=== PATIENT | female | born 1985 | race Caucasian/White ===

== ENCOUNTER 2021-09-27 08:59 | Observation (INO) | payer OTHER ==
[~2021-09-27] VITALS: Ht 165.1 cm; Wt 64.9 kg
== END 2021-09-27 13:15 | disposition home or self-care (01) ==
LOC: SPU 08:59
PROVIDERS: ADMIT Specialist; ATTEND Specialist
DX: O47.1 False labor at or after 37 completed weeks of gestation (principal); Z3A.37 37 weeks gestation of pregnancy
CPT/HCPCS: 59025; 76819; 81002; G0378

== ENCOUNTER 2021-10-02 23:20 | Observation (INO) | payer OTHER | END 2021-10-03 00:45 | disposition home or self-care (01) | LOC: SPU 23:20 | PROVIDERS: ADMIT Specialist; ATTEND Specialist | DX: O62.9 Abnormality of forces of labor, unspecified (principal); Z3A.39 39 weeks gestation of pregnancy | CPT/HCPCS: 81002; G0378; G0379 ==

== ENCOUNTER 2021-10-04 09:57 | Inpatient (IN) | payer OTHER ==
[~2021-10-04] VITALS: Ht 165.1 cm; Wt 64.9 kg
[2021-10-04] MEDS ORDERED: TERBUTALINE SULFATE 1 MG/ML VIAL SUBCUT ONE (11:15)
[2021-10-04] MEDS ORDERED: LR 1,000 ML IV SCH (11:15)
[2021-10-04] MEDS ORDERED: NALBUPHINE HCL 10 MG/ML AMP IM PRN (11:15)
[2021-10-04] MEDS ORDERED: OXYTOCIN/0.9 % SODIUM CHLORIDE 1,000 ML IV SCH ×2 (11:15→16:45)
[2021-10-04 11:36] LABS: BASOPHILS # (AUTO) 0.2 K/uL (0.0-0.2); BASOPHILS % (AUTO) 2.3 % (0.0-2.0); EOSINOPHILS # (AUTO) 0.1 K/uL (0.0-0.4); EOSINOPHILS % (AUTO) 0.5 % (0.0-4.0); HEMATOCRIT 37.1 % (36-48); HEMOGLOBIN 12.7 g/dL (12.0-16.0); LYMPHOCYTES # (AUTO) 1.5 K/uL (1.0-5.5); LYMPHOCYTES % (AUTO) 14.4 % (20.5-51.5); MEAN CORPUSCULAR HEMOGLOBIN 30 pg (27-31); MEAN CORPUSCULAR HGB CONC 34 % (32-36); MEAN CORPUSCULAR VOLUME 88 fL (79.0-98.0); MONOCYTES # (AUTO) 0.5 K/uL (0.0-1.0); MONOCYTES % (AUTO) 4.4 % (1.7-9.3); NEUTROPHILS % (AUTO) 78.4 % (40.0-70.0); PLATELET COUNT (AUTO) 298 K/uL (130-430); RED CELL DISTRIBUTION WIDTH 12.6 % (9.0-15.0); WHITE BLOOD COUNT (AUTO) 10.3 K/uL (4.8-10.8)
[2021-10-04] MEDS ORDERED: ROPIVACAINE HCL/PF 0.2% 200 ML ONE (15:16)
[2021-10-04] MEDS ORDERED: fentaNYL CITRATE/PF 100 MCG/2 ML AMP ONE (15:16)
[2021-10-04] MEDS ORDERED: LIGHT MINERAL OIL 10 ML VIAL MC ONE (15:59)
[2021-10-04] MEDS ORDERED: LIDOCAINE PF 1% 30ML(POUR BTL) INJ ONE (15:59)
[2021-10-04] MEDS ORDERED: NALOXONE HCL 0.4 MG/ML AMP (NARCAN) ONE (15:59)
[2021-10-04] MEDS ORDERED: LANOLIN 7 GM OINT. TP PRN (16:45)
[2021-10-04] MEDS ORDERED: WITCH HAZEL LEAF 1 MED.PAD MED.PAD TP PRN (16:45)
[2021-10-04] MEDS ORDERED: OXYCODONE/ACETAMINOPHEN 5-325 TABLET PO PRN ×2 (16:45)
[2021-10-04] MEDS ORDERED: OXYTOCIN/0.9 % SODIUM CHLORIDE 1,000 ML IV ONE (16:45)
[2021-10-04] MEDS ORDERED: HYDROCORTISONE 0.5% CREAM 28.4 GM CREAM.GM. TP PRN (16:45)
[2021-10-04] MEDS ORDERED: MEASLES,MUMPS&RUBELLA VACC/PF 12500 UNIT/0.5 ML VIAL SUBQ PRN (16:45)
[2021-10-04] MEDS ORDERED: DIPH-TET-PERTUS Vaccine 0.5 ML VIAL (ADACEL) I.M. PRN (16:45)
[2021-10-04] MEDS ORDERED: METHYLERGONOVINE MALEATE 0.2 MG TABLET PO PRN (16:45)
[2021-10-04] MEDS ORDERED: RHO(D) IMMUNE GLOBULIN/MALTOSE 1500 UNITS/1.3 ML (WINHRO) IM PRN (16:45)
[2021-10-04] MEDS ORDERED: HYDROcodone/ACETAMIN 5-325 MG TAB (NORCO/ VICODIN) PO PRN (16:45)
[2021-10-04] MEDS ORDERED: DERMOPLAST SPRAY TP PRN (16:45)
[2021-10-04] MEDS ORDERED: ANUSOL 1 EA SUPP.RECT (PREPARATION H) RC PRN (16:45)
[2021-10-04] MEDS ORDERED: NALOXONE HCL 0.4 MG/ML AMP (NARCAN) IVP PRN (16:45)
[2021-10-04] MEDS ORDERED: FENT2mCg/mL-ROPIVA0.2%/NS EPID 200 ML EP SCH (17:00)
[2021-10-04] MEDS ORDERED: LR 500 ML IV ONE (17:00)
[2021-10-04] MEDS: IBUPROFEN 600 MG TABLET PO SCH (18:26)
[2021-10-04 19:47] VITALS: BP_SYST 140
[2021-10-04 20:00] VITALS: BP_SYST 133; BP_SYST 87
[2021-10-04] MEDS ORDERED: TEMAZEPAM 15 MG CAPSULE PO PRN (21:00)
[2021-10-04] MEDS ORDERED: SENNOSIDES/DOCUSATE SODIUM 1 TAB TABLET(SENOKOT-S) PO SCH (21:00)
--- NOTE | 2021-10-04 23:07 | NUR ---
1946 vital signs charted by mistake - wrong patient Addendum: 10/04/21 at 2312 by Mony Bajwa RN Amended: Links added.
[2021-10-05] MEDS: IBUPROFEN 600 MG TABLET PO SCH ×3 (00:12→11:34)
[2021-10-05 07:02] LABS: BASOPHILS % (AUTO) 0.3 % (0.0-2.0); EOSINOPHILS # (AUTO) 0.1 K/uL (0.0-0.4); EOSINOPHILS % (AUTO) 0.4 % (0.0-4.0); HEMATOCRIT 31.4 % (36-48); HEMOGLOBIN 10.9 g/dL (12.0-16.0); LYMPHOCYTES % (AUTO) 22.2 % (20.5-51.5); MEAN CORPUSCULAR HEMOGLOBIN 31 pg (27-31); MEAN CORPUSCULAR HGB CONC 35 % (32-36); MEAN CORPUSCULAR VOLUME 88 fL (79.0-98.0); MONOCYTES # (AUTO) 0.7 K/uL (0.0-1.0); MONOCYTES % (AUTO) 5.4 % (1.7-9.3); NEUTROPHILS # (AUTO) 9.7 K/uL (1.8-7.7); NEUTROPHILS % (AUTO) 71.7 % (40.0-70.0); PLATELET COUNT (AUTO) 252 K/uL (130-430); RED BLOOD CELL COUNT(AUTO) 3.55 MIL/uL (4.2-6.2); RED CELL DISTRIBUTION WIDTH 12.8 % (9.0-15.0); WHITE BLOOD COUNT (AUTO) 13.6 K/uL (4.8-10.8)
[2021-10-05] MEDS ORDERED: DOCUSATE SODIUM 100 MG CAPSULE PO SCH (09:00)
== END 2021-10-05 17:45 | disposition home or self-care (01) | DRG 807 ==
LOC: SPU 09:57
PROVIDERS: ADMIT Specialist; ATTEND Specialist
PROC: 10D07Z6 Extraction of Products of Conception, Vacuum, Via Natural or Artificial Opening (ICD-10-PCS; principal; 2021-10-04)
PROC: 3E0R3BZ Introduction of Anesthetic Agent into Spinal Canal, Percutaneous Approach (ICD-10-PCS; 2021-10-04)
PROC: 00HU33Z Insertion of Infusion Device into Spinal Canal, Percutaneous Approach (ICD-10-PCS; 2021-10-04)
DX: O69.81X0 Labor and delivery complicated by cord around neck, without compression, not applicable or unspecified (principal); Z37.0 Single live birth; Z20.822 Contact with and (suspected) exposure to COVID-19; Z3A.38 38 weeks gestation of pregnancy
CPT/HCPCS: 36415; 85025; 86592; 86780; 86886; 86900; 86901; J2001; J2300; J2310; J2590; J3010